=== PATIENT | male | born 1960 | race Caucasian/White ===

== ENCOUNTER 2022-05-07 11:11 | Observation (INO) ==
[2022-05-07] MEDS ORDERED: Piperacillin/Tazobactam 3.375 GM in 0.9 % Sodium Chloride Mini Bag 100 ML IVPB ONE (12:13)
[2022-05-07 12:59] LABS: Basophils % 0.4 %; Eosinophils # 0.1 K/mcL (0.0-0.6); Eosinophils % 1.8 %; Hematocrit 46.4 % (37.5-50.1); Hemoglobin 15.4 g/dL (12.9-16.9); Immature Granulocytes % 0.4 % (0-4); Lymphocytes # 1.2 K/mcL (0.6-4.6); Lymphocytes % 16.3 %; Mean Corpuscular HGB Conc 33.2 g/dL (31.6-35.5); Mean Corpuscular Hemoglobin 29.8 pg (28.0-33.3); Mean Corpuscular Volume 89.7 fL (83.0-100.0); Mean Platelet Volume 9.4 fL (9.4-12.4); Monocytes # 0.8 K/mcL (0.0-1.3); Monocytes % 10.2 %; Neutrophils # 5.2 K/mcL (1.6-8.9); Platelet Count 233 K/mcL (140-400); Red Blood Count 5.17 M/mcL (4.19-5.50); Segmented Neutrophils % 70.9 %; White Blood Count 7.4 K/mcL (4.3-11.1)
[2022-05-07] MEDS ORDERED: Vancomycin 1,500 MG/265 ML IV.SOLN IVPB ONE (13:00)
[2022-05-07 13:21] LABS: BUN/Creatinine Ratio 29 (6-26); Blood Urea Nitrogen 24 mg/dL (8-23); C-Reactive Protein 26 mg/L (Less than 10); Calcium 9.7 mg/dL (8.6-10.3); Carbon Dioxide 29 mEq/L (23-29); Chloride 102 mEq/L (98-107); Glucose 114 mg/dL (70-105); Osmolality,Calculated 289 (280-300); Potassium 4.2 mEq/L (3.5-5.1); Sodium 137 mEq/L (136-145)
[2022-05-07] MEDS ORDERED: Gadolinium Contrast Agent (WT Based) IV PRN (13:52)
[2022-05-07] MEDS ORDERED: Tdap (Boostrix) Vaccine 0.5 ML SYRINGE IM ONE (13:57)
[2022-05-07] MEDS ORDERED: Naloxone 0.4 MG/ML INJ IVP PRN (14:14)
[2022-05-07] MEDS ORDERED: *HR* OxyCODONE Immed Rel 5 MG TABLET PO PRN (14:14)
[2022-05-07] MEDS ORDERED: Acetaminophen 325 MG TABLET PO PRN (14:14)
[2022-05-07] MEDS ORDERED: Ondansetron 4 MG/2 ML VIAL IVP PRN (14:14)
[2022-05-07] MEDS ORDERED: Melatonin 3 MG TABLET PO PRN (14:14)
[2022-05-07] MEDS ORDERED: *HR* Dextrose 50 % in Water (Syg) 50 ML SYRINGE IVP PRN (14:32)
[2022-05-07] MEDS ORDERED: Dextrose Gel 15 GM/37.5 ML TUBE PO PRN ×2 (14:32)
[2022-05-07] MEDS ORDERED: D5% in Water 1,000 ML IVC PRN (14:32)
[2022-05-07] MEDS ORDERED: ALPRAZolam 0.5 MG TABLET PO PRN (14:33)
[2022-05-07] MEDS ORDERED: Nicotine 21 MG PATCH.TD24 TD SCH (14:45)
[2022-05-07 15:22] LABS: Estimated Average Glucose 143 mg/dl; Hemoglobin A1C 6.6 %
[2022-05-07] MEDS ORDERED: Insulin LISPRO 300 UNITS/3 ML VIAL SUBQ SCH ×2 (16:30→21:00)
[2022-05-07] MEDS: Cefepime HCl 2,000 MG in 0.9 % Sodium Chloride Mini Bag 100 ML IVPB SCH ×2 (17:00→18:30)
[2022-05-07] MEDS ORDERED: *HR* LORazepam 2 MG/ML VIAL IVP ONE (17:20)
[2022-05-07 18:41] VITALS: BP 132/89; PULSE 90; TEMP 97.4; O2SAT 97
[2022-05-07] MEDS ORDERED: Insulin DETEMIR 100 UNIT/ML X5UNITS SUBQ SCH (21:00)
[2022-05-07] MEDS ORDERED: *HR* Buprenorphine HCl 8 MG TAB.SUBL SL SCH (21:00)
[2022-05-08] MEDS ORDERED: Vancomycin 1,500 MG/265 ML IV.SOLN IVPB SCH (02:00)
== END 2022-05-07 19:40 | disposition left against medical advice (07) ==
LOC: 3BNU 11:11 → EMEROOARM 11:11 → 3BNU 16:00
PROVIDERS: ADMIT Hospitalist; ATTEND Hospitalist

== ENCOUNTER 2022-05-08 05:46 | Observation (INO) ==
[2022-05-08] MEDS ORDERED: Vancomycin 1,500 MG/265 ML IV.SOLN IVPB ONE (07:00)
[2022-05-08 07:18] LABS: Basophils % 0.3 %; Eosinophils # 0.2 K/mcL (0.0-0.6); Eosinophils % 3.5 %; Hematocrit 46.5 % (37.5-50.1); Hemoglobin 15.5 g/dL (12.9-16.9); Immature Granulocytes % 0.3 % (0-4); Lymphocytes # 1.4 K/mcL (0.6-4.6); Lymphocytes % 20.2 %; Mean Corpuscular HGB Conc 33.3 g/dL (31.6-35.5); Mean Corpuscular Hemoglobin 29.4 pg (28.0-33.3); Mean Corpuscular Volume 88.1 fL (83.0-100.0); Mean Platelet Volume 9.5 fL (9.4-12.4); Monocytes # 0.8 K/mcL (0.0-1.3); Neutrophils # 4.3 K/mcL (1.6-8.9); Platelet Count 223 K/mcL (140-400); Red Blood Count 5.28 M/mcL (4.19-5.50); Red Cell Distribution Width 14.2 % (11.5-14.5); Segmented Neutrophils % 63.7 %; White Blood Count 6.8 K/mcL (4.3-11.1)
[2022-05-08 07:37] LABS: BUN/Creatinine Ratio 26 (6-26); Blood Urea Nitrogen 23 mg/dL (8-23); Calcium 9.6 mg/dL (8.6-10.3); Carbon Dioxide 30 mEq/L (23-29); Chloride 103 mEq/L (98-107); Glucose 137 mg/dL (70-105); Osmolality,Calculated 292 (280-300); Potassium 4.2 mEq/L (3.5-5.1); Sodium 138 mEq/L (136-145)
[2022-05-08] MEDS ORDERED: Gadolinium Contrast Agent (WT Based) IV PRN (08:10)
[2022-05-08] MEDS ORDERED: Melatonin 3 MG TABLET PO PRN (08:13)
[2022-05-08] MEDS ORDERED: Naloxone 0.4 MG/ML INJ IVP PRN (08:13)
[2022-05-08] MEDS ORDERED: Acetaminophen 325 MG TABLET PO PRN (08:13)
[2022-05-08] MEDS ORDERED: Ondansetron ODT 4 MG TAB.RAPDIS SL PRN (08:13)
[2022-05-08] MEDS ORDERED: *HR* LORazepam 2 MG/ML VIAL IVP PRN (08:39)
[2022-05-08] MEDS ORDERED: Nicotine 2 MG GUM BC PRN (08:40)
[2022-05-08] MEDS ORDERED: *HR* Rivaroxaban 10 MG TABLET PO SCH (09:00)
[2022-05-08] MEDS ORDERED: Nicotine 14 MG PATCH.TD24 TD SCH (09:00)
[2022-05-08] MEDS ORDERED: *HR* Buprenorphine HCl 8 MG TAB.SUBL SL SCH ×2 (09:30→11:30)
[2022-05-08] MEDS: DilTIAZem CD (24hr) 120 MG CAP.ER.24H PO SCH (09:52)
[2022-05-08] MEDS: Metoprolol XL (24 HR) Succ 50 MG TAB.ER.24H PO SCH ×3 (09:53→17:19)
[2022-05-08] MEDS: Cefepime HCl 2,000 MG in 0.9 % Sodium Chloride Mini Bag 100 ML IVPB SCH ×3 (11:41→23:55)
[2022-05-08] MEDS ORDERED: Dextrose Gel 15 GM/37.5 ML TUBE PO PRN ×2 (13:06)
[2022-05-08] MEDS ORDERED: *HR* Dextrose 50 % in Water (Syg) 50 ML SYRINGE IVP PRN (13:06)
[2022-05-08] MEDS ORDERED: D5% in Water 1,000 ML IVC PRN (13:06)
[2022-05-08] MEDS: ALPRAZolam 0.5 MG TABLET PO PRN ×2 (17:12→23:50)
[2022-05-08] MEDS: Vancomycin 1,500 MG/265 ML IV.SOLN IVPB SCH (18:24)
[2022-05-08] MEDS ORDERED: Latanoprost 2.5 ML BOTTLE BOTH EYES SCH (21:00)
[2022-05-09] MEDS: Vancomycin 1,500 MG/265 ML IV.SOLN IVPB SCH (07:08)
[2022-05-09] MEDS: *HR* Buprenorphine HCl 8 MG TAB.SUBL SL SCH ×2 (07:51→11:49)
[2022-05-09] MEDS: DilTIAZem CD (24hr) 120 MG CAP.ER.24H PO SCH (07:51)
[2022-05-09] MEDS: ALPRAZolam 0.5 MG TABLET PO PRN (07:51)
[2022-05-09] MEDS: Metoprolol XL (24 HR) Succ 50 MG TAB.ER.24H PO SCH (07:52)
[2022-05-09] MEDS ORDERED: Nicotine 21 MG PATCH.TD24 TD SCH (09:00)
[2022-05-09] MEDS: Cefepime HCl 2,000 MG in 0.9 % Sodium Chloride Mini Bag 100 ML IVPB SCH (09:02)
[2022-05-09 10:41] VITALS: BP 121/86; PULSE 64; TEMP 97.4; O2SAT 97
== END 2022-05-09 13:01 | disposition home or self-care (01) ==
LOC: EMEROOARM 05:46 → 3BNU 05:46 → SUATTDRO 08:11 → 3BNU 08:55
PROVIDERS: ADMIT Internal Medicine; ATTEND Registered Nurse